=== PATIENT | male | born 1965 | race Caucasian/White ===

== ENCOUNTER → 2021-02-04 12:56 | Outpatient (BNVA) | payer OTHER, SELFPAY | PROVIDERS: Family Provider Family Medicine; PCP Family Medicine; Referring Provider Nurse Practitioner; Visit Provider Podiatrist Foot & Ankle Surgery | DX: M77.31 Calcaneal spur, right foot (principal); M21.41 Flat foot [pes planus] (acquired), right foot; M19.071 Primary osteoarthritis, right ankle and foot | CPT/HCPCS: 73630 ==

== ENCOUNTER 2021-02-04 13:59 | Outpatient (CLI) | payer OTHER, SELFPAY | END 2021-02-04 14:00 | disposition home or self-care (01) | LOC: SPT 13:59 | PROVIDERS: Family Provider Family Medicine; PCP Family Medicine; Visit Provider Podiatrist Foot & Ankle Surgery | DX: Z46.89 Encounter for fitting and adjustment of other specified devices (principal); M76.61 Achilles tendinitis, right leg | CPT/HCPCS: 97760; L3332; L4397 ==

== ENCOUNTER 2023-06-20 09:51 | Emergency (ER) | payer OTHER, SELFPAY ==
[2023-06-20 10:39] VITALS: BP 163/87; PULSE 68; RESP 18; TEMP 36.8; O2SAT 97; BMI 38.5
[2023-06-20 10:55] LABS: Basophils # 0.1 10^3/uL (0.0-0.1); Basophils % 0.7 %; Eosinophils # 0.1 10^3/uL (0.0-0.8); Eosinophils % 0.7 %; Hematocrit 44.2 % (37-53); Lymphocytes # 1.2 10^3/uL (0.8-4.8); Mean Corpuscular HGB Conc 33.5 g/dL (30-55); Mean Corpuscular Hemoglobin 31.5 pg (27-33); Monocytes # 0.4 10^3/uL (0.2-0.9); Monocytes % 4.7 %; Neutrophils # 6.84 10^3/uL (1.8-7.7); Neutrophils % 79.4 %; Nucleated Red Blood Cells % 0 %; Platelet Count 240 10^3/cmm (157-399); Red Cell Distribution Width 13.7 % (12.1-15.1)
[2023-06-20 11:12] LABS: Alanine Aminotransferase 42 U/L (0-41); Albumin Level 4.4 g/dL (3.5-5.2); Alkaline Phosphatase 86 U/L (40-130); Anion Gap 14.8 (5-19); Aspartate Amino Transferase 23 U/L (0-40); Blood Urea Nitrogen 22 mg/dL (6-20); Calcium 9.1 mg/dL (8.5-10.5); Carbon Dioxide 26 mmol/L (22-29); Chloride 104 mmol/L (98-107); Creatinine Clr Calc Pharmacy 145.9001; Globulin 2.5 g/dL (1.3-4.6); Glomerular Filtration Rate 98.9 mL/min (90-130); Glucose 109 mg/dL (65-115); Lipase 29 U/L (13-60); Osmolality Calculated 296 mOsm/kg (285-295); Potassium 3.8 mmol/L (3.5-5.1); Sodium 141 mmol/L (136-145); Total Bilirubin 0.4 mg/dL (0.15-1.2); Total Protein 6.9 g/dL (6.6-8.7)
--- NOTE | 2023-06-20 11:25 | ED_ITS ---
HPI - Abdominal Pain 2 General: Chief Complaint: Abdominal Pain Stated Complaint: abd pain Time Seen by Provider: 06/20/23 09:54 Source: patient Mode of arrival: ambulatory Limitations: no limitations History of Present Illness: 57-year-old male states he been having a bdominal pain since last night he had had a ruptured appendectomy back in the he has a large abdominal incision from that states that he feels a lump on the right part of that incision that is painful to touch she has noticed that since yesterday. Denies any vomiting denies any fever denies any diarrhea. Associated Symptoms: Denies chills, diarrhea, dysuria, fever(s), nausea and vomiting Review of Systems 2 Const: Denies: fever(s), chills, body aches or change in appetite ENMT: Denies: throat pain or dental pain Card: Denies: chest pain Resp: Denies: dyspnea GI: Reports: abdominal pain; Denies: nausea, vomiting or diarrhea : Denies: dysuria Musc: Denies: neck pain or back pain Skin/Breast: Denies: rash Neuro: Denies: headache(s) PFSH ED 2 PFSH: Social History Alcohol intake: current Physical Exam 2 Const: COMMON NORMALS: no acute distress, patient oriented x3 and healthy appearing HENMT: COMMON NORMALS: normocephalic and atraumatic HEAD & SCALP: n ormocephalic and atraumatic Neck/C-Spine: COMMON NORMALS: full ROM and supple Chest: COMMONS NORMALS: normal inspection of the chest Resp: COMMON NORMALS: normal respiratory effort Cardio: COMMON NORMALS: regular rate, regular rhythm and No murmurs present (Cardio) RATE: regular rate RHYTHM: regular rhythm GI: COMMON NORMALS: Soft to palpation, non-tender and no masses PALPATION: Yes Soft to palpation OTHER: Large incision to mid abdomen he does have a ventral hernia with incarcerated bowel that was reduced here by me Extremity: COMMON NORMALS: normal to inspection and full ROM Neuro: COMMON NORMALS: patient oriented x3, moves all extremities and no focal motor deficits Psych: COMMON NORMALS: mental status grossly normal, Normal thought process present and cooperative THOUGHT PROCESS: Normal thought process present Skin: COMMON NORMALS: no rashes or lesions noted and no wounds GENERAL SKIN EXAM: no rashes or lesions noted Course 2 Vital Signs: Vital signs: Vital Signs Temperature 98.3 F 06/20/23 10:39 Pulse Rate 68 06/20/23 10:39 Respiratory Rate 18 06/20/23 10:39 Blood Pressure 163/87 06/20/23 10:39 Pulse Oximetry 97 06/20/23 10:39 Oxygen Delivery Me thod Room Air 06/20/23 10:39 MDM - Abdominal Pain Medical Decision Making Patient presents here with abdominal pain from a ventral hernia was able to reduce the hernia and his pain is much improved currently blood works normal does not require any imaging he stable for discharge follow-up with surgeon return if worsening. Medical Records I reviewed the patient's medical records. Lab Data I reviewed the patient's lab results. 06/20/23 10:33 06/20/23 10:33 Labs/Radiology: Laboratory Results WBC 8.60 10^3/uL (3.29-11.43) 06/20/23 10:33 RBC 4.70 10^6/uL (3.85-5.65) 06/20/23 10:33 Hgb 14.80 g/dL (11.27-16.99) 06/20/23 10:33 Hct 44.2 % (37-53) 06/20/23 10:33 MCV 94.0 fl (82-101) 06/20/23 10:33 MCH 31.5 pg (27-33) 06/20/23 10:33 MCHC 33.5 g/dL (30-55) 06/20/23 10:33 RDW 13.7 % (12.1-15.1) 06/20/23 10:33 Plt Count 240 10^3/cmm (157-399) 06/20/23 10:33 MPV 10.0 fL (7.4-10.4) 06/20/23 10:33 Neut % (Auto) 79.4 % 06/20/23 10:33 Lymph % (Auto) 14.0 % 06/20/23 10:33 [place] % (Auto) 4.7 % 06/20/23 10:33 Eos % (Auto) 0.7 % 06/20/23 10:33 Baso % (Auto) 0.7 % 06/20/23 10:33 Neut # (Auto) 6.84 10^3/uL (1.8-7.7) 06/20/23 10:33 Lymph # (Auto) 1.2 10^3/uL (0.8-4.8) 06/20/23 10:33 [place] # (Auto) 0.4 10^3/uL (0.2-0.9) 06/20/23 10:33 Eos # (Auto) 0.1 10^3/uL (0.0-0.8) 06/20/23 10:33 Baso # (Auto) 0.1 10^3/uL (0.0-0.1) 06/20/23 10:33 Nucleated RBC % (auto) 0 % 06/20/23 10:33 Nucleated RBCs # 0.0 /100WBC 06/20/23 10:33 Sodium 141 mmol/L (136-145) 06/20/23 10:33 Potassium 3.8 mmol/L (3.5-5.1) 06/20/23 10:33 Chloride 104 mmol/L (98-107) 06/20/23 10:33 Carbon Dioxide 26 mmol/L (22-29) 06/20/23 10:33 Anion Gap 14.8 (5-19) 06/20/23 10:33 BUN 22 mg/dL (6-20) H 06/20/23 10:33 Creatinine 0.8 mg/dL (0.7-1.2) 06/20/23 10:33 GFR Calculation 98.9 mL/min (90-130) 06/20/23 10:33 Glucose 109 mg/dL (65-115) 06/20/23 10:33 Calculated Osmolality 296 mOsm/kg (285-295) H 06/20/23 10:33 Calcium 9.1 mg/dL (8.5-10.5) 06/20/23 10:33 Total Bilirubin 0.4 mg/dL (0.15-1.2) 06/20/23 10:33 AST 23 U/L (0-40) 06/20/23 10:33 ALT 42 U/L (0-41) H 06/20/23 10:33 Alkaline Phosphatase 86 U/L (40-130) 06/20/23 10:33 Total Protein 6.9 g/dL (6.6-8.7) 06/20/23 10:33 Albumin 4.4 g/dL (3.5-5.2) 06/20/23 10:33 Globulin 2.5 g/dL (1.3-4.6) 06/20/23 10:33 Lipase 29 U/L (13-60) 06/20/23 10:33 No radiology studies performed this visit Discharge Plan Discharge Patient Disposition: Home Clinical Impression: Abdominal pain, Ventral hernia Condition: Stable Prescriptions: No Action lisinopril 10 mg tablet 10 mg PO DAILY atorvastatin 20 mg tablet 20 mg PO DAILY potassium chloride 20 mEq tablet extended release 20 meq PO DAILY (DME) Night Splint See Rx Instructions .Route .MEDSUPPLY Qty: 1 0RF Rx Instructions: As directed prednisone 10 mg tablet 10 mg PO DAILY 12 Days Qty: 42 0RF Rx Instructions: 12 day taper (DME) Heel Lift See Rx Instructions .Route .MEDSUPPLY Qty: 1 0RF Rx Instructions: As directed Discharge Orders: Discharge ED (Routine); Ordered 06/20/23 Ordered By: Michael Rodas Referrals: Hollis Menon DO [Physician] - 4-7 days Katherin Bernard FNP [Primary Care Provider] - Discharge Diet: Advance as tolerated Discharge Activity: Resume usual activity Patient Instructions: Abdominal Pain (ED), Ventral Hernia (ED) Coding Level of Care Code ED Classification Officer for Octavio Yanes
--- NOTE | 2023-06-20 11:49 | PC.PHAR ---
pt states he takes care of his own medications-pt states he takes the medications entered -pt states he finished his medrol dose jimbo rx filled 06/12/23 6d/s-[place]ed [place] medications entered from what the pt states he takes-
[2023-06-20 11:56] VITALS: BP 160/95; PULSE 69; O2SAT 90
--- NOTE | 2023-06-23 05:32 | DCPLANNER ---
Message sent to general surgery for a follow up - hernia
== END 2023-06-20 11:58 | disposition home or self-care (01) ==
PROVIDERS: Physician Assistant; Emergency Provider Emergency Medicine; PCP Nurse Practitioner
DX: K43.6 Other and unspecified ventral hernia with obstruction, without gangrene (principal)
CPT/HCPCS: 36415; 80053; 83690; 85025; 99283

== ENCOUNTER → 2023-07-04 08:22 | Outpatient (BNVA) | payer OTHER, SELFPAY | PROVIDERS: PCP Nurse Practitioner; Referring Provider Emergency Medicine; Visit Provider Surgery | DX: K46.9 Unspecified abdominal hernia without obstruction or gangrene (principal) | CPT/HCPCS: 99203 ==

== ENCOUNTER 2023-07-25 12:37 | Outpatient (CLI) | payer OTHER, SELFPAY ==
[2023-07-25] MEDS: iohexol 350 mg/mL 500 mL Btl (per mL) PO (13:50)
[2023-07-25] MEDS: iohexol 350 mg/mL 500 mL Btl (per mL) IV (13:50)
--- NOTE | 2023-07-25 14:00 | CT_ITS ---
WS: [id number] CT ABDOMEN PELVIS TECHNIQUE: Contrast-enhanced CT of the abdomen and pelvis with coronal and sagittal reformatted image s. CLINICAL INFORMATION: ventral incisional hernia COMPARISON: None. DLP: 1164.[address] scans at [facility] use at least one of these dose optimization techniques: automated e xposure control; mA and/or kV adjustment per patient size (includes targeted exams where dose is matc hed to clinical indication); or iterative reconstruction. FINDINGS: Lung bases are well aerated. Small esophageal hiatal hernia. Diffuse fatty infiltration of the liver. Normal portal vein and splenic vein. Small esophageal hiatal hernia. Normal spleen. Gallbladder is decompressed. Normal caliber abdominal aorta. Mild aortic calc ification. Celiac and SMA are patent. Adrenal glands are normal. Normal renal parenchymal enhancement . No hydronephrosis. Pelvic phleboliths. Mild prostate enlargement measuring 5.3 cm. Recommend correl ation PSA. Mild bladder wall thickening can be seen with bladder outlet obstruction. Bladder is decom pressed. Sigmoid diverticulosis. No evidence of small or large bowel obstruction. Numerous periumbili jduah fat-containing abdominal wall hernias. No herniated bowel. Tiny fat-containing RIGHT supraumbilical hernia. Bilateral fat-containing supraumbilical hernias. Sma ll fat-containing RIGHT periumbilical hernia. Bilateral LEFT greater than RIGHT fat-containing inguinal hernias. IMPRESSION: 1. Several supraumbilical and periumbilical fat-containing hernias described above. No herniated bow el. 2. Small esophageal hiatal hernia. 3. Diffuse fatty filtration of the liver. 4. A few sigmoid diverticuli. 5. Enlarged prostate. Recommend correlation PSA.
== END 2023-07-25 12:38 | disposition home or self-care (01) ==
LOC: RAD 12:37
PROVIDERS: PCP Nurse Practitioner; Visit Provider Surgery
DX: K43.9 Ventral hernia without obstruction or gangrene (principal); K42.9 Umbilical hernia without obstruction or gangrene; K44.9 Diaphragmatic hernia without obstruction or gangrene; K57.30 Diverticulosis of large intestine without perforation or abscess without bleeding
CPT/HCPCS: 74177; Q9967

== ENCOUNTER → 2023-08-01 10:32 | Outpatient (BNVA) | payer OTHER, SELFPAY | PROVIDERS: PCP Nurse Practitioner; Visit Provider Surgery | DX: Z09 Encounter for follow-up examination after completed treatment for conditions other than malignant neoplasm (principal) | CPT/HCPCS: 99213 ==

== ENCOUNTER 2023-08-09 11:54 | Emergency (ER) | payer OTHER, SELFPAY ==
[2023-08-09 12:07] VITALS: BP 167/87; PULSE 70; RESP 18; TEMP 36.4; O2SAT 98; BMI 38.5
[2023-08-09 13:20] LABS: Basophils % 0.7 %; Eosinophils # 0.1 10^3/uL (0.0-0.8); Eosinophils % 1.7 %; Hematocrit 41.3 % (37-53); Lymphocytes # 1.6 10^3/uL (0.8-4.8); Lymphocytes % 26.5 %; Mean Corpuscular HGB Conc 33.9 g/dL (30-55); Mean Corpuscular Hemoglobin 31.7 pg (27-33); Mean Corpuscular Volume 93.7 fl (82-101); Mean Platelet Volume 9.9 fL (7.4-10.4); Monocytes # 0.4 10^3/uL (0.2-0.9); Monocytes % 7.2 %; Neutrophils # 3.82 10^3/uL (1.8-7.7); Neutrophils % 63.7 %; Nucleated Red Blood Cells % 0 %; Platelet Count 210 10^3/cmm (157-399); Red Blood Count 4.41 10^6/uL (3.85-5.65); White Blood Count 5.99 10^3/uL (3.29-11.43)
--- NOTE | 2023-08-09 13:39 | PC.PHAR ---
faxed [place] for med list
[2023-08-09 13:44] LABS: Alanine Aminotransferase 30 U/L (0-41); Albumin Level 4.2 g/dL (3.5-5.2); Alkaline Phosphatase 87 U/L (40-130); Aspartate Amino Transferase 22 U/L (0-40); Blood Urea Nitrogen 16 mg/dL (6-20); Calcium 9.5 mg/dL (8.5-10.5); Carbon Dioxide 28 mmol/L (22-29); Chloride 105 mmol/L (98-107); Creatinine Clr Calc Pharmacy 145.9001; Globulin 2.3 g/dL (1.3-4.6); Glomerular Filtration Rate 98.9 mL/min (90-130); Glucose 104 mg/dL (65-115); Lipase 30 U/L (13-60); Osmolality Calculated 295 mOsm/kg (285-295); Sodium 142 mmol/L (136-145); Total Bilirubin 0.2 mg/dL (0.15-1.2); Total Protein 6.5 g/dL (6.6-8.7)
--- NOTE | 2023-08-09 14:06 | W.ED.ABDPA2 ---
HPI - Abdominal Pain General: Chief Complaint: Abdominal Pain Stated Complaint: abd pain Time Seen by Provider: 08/09/23 13:45 Source: patient Mode of arrival: ambulatory History of Present Illness: 57-year-old male presents emergency room complaining of abdominal pain. Patient has had previous evaluations for the same issue he is several abdominal wall hernias he was seen in the emergency room referred to Dr. Renae Macdonald and referred him to surgery [place] for definitive care. He is complaining of increasing pain today no nausea or vomiting no dysuria urgency or frequency. Has persistent bulge in the abdominal pa[place] in the areas where he previously was known to have hernias. MD elicited complaint: abdominal pain Onset (ago): month(s) Pain Consistency: intermittent Location: Diffuse Severity: moderate Quality: sharp Exacerbating factors: nothing Relieving factors: nothing Associated Symptoms: Reports GI cramping; Denies anorexia, belching, bloating, change in bowel habits, change in stool character, chills, coffee ground emesis, constipation, diarrhea, dyspepsia, dysuria, excessive flatus, fever(s), heartburn, hematochezia, hematuria, hematemesis, fecal incontinence, loose stools, melena, nausea, poor appetite, syncope and vomiting Review of Systems Const: Denies: fever(s) or chills Card: Denies: chest pain or syncope Resp: Denies: dyspnea GI: Reports: GI cramping; Denies: abdominal pain, nausea, vomiting, hematemesis, coffee ground emesis, heartburn, diarrhea, constipation, bloating, belching, excessive flatus, fecal incontinence, change in bowel habits, change in stool character, hematochezia or melena : Denies: dysuria, urinary frequency, urinary urgency or hematuria Musc: Denies: neck pain or back pain Skin/Breast: Denies: rash PFSH ED PFSH: Family History Father Hypertension Social History Smoking and tobacco/nicotine status: never used tobacco/nicotine Alcohol intake: current Alcohol intake frequency: holidays/special occasions only Physical Exam Const: GENERAL APPEARANCE: cooperative and comfortable ORIENTATION/CONSCIOUSNESS: Yes awake, Yes oriented to person, Yes oriented to place and Yes oriented to time HENMT: COMMON NORMALS: normocephalic, atraumatic and hearing grossly normal bilaterally HEAD & SCALP: normocephalic and atraumatic Resp: COMMON NORMALS: normal respiratory effort, No retractions, No use of accessory muscles and clear to auscultation bilaterally AUSCULTATION: clear to auscultation bilaterally Cardio: COMMON NORMALS: regular rate, regular rhythm and No murmurs present (Cardio) RATE: regular rate RHYTHM: regular rhythm GI: COMMON NORMALS: Soft to palpation and No hepatosplenomegaly present AUSCULTATION: Yes normoactive bowel sounds PALPATION: Yes Soft to palpation, No Tenderness to palpation present (GI), No Guarding due to palpation present (GI) and Yes No hepatosplenomegaly present Extremity: COMMON NORMALS: normal to inspection, capillary refill normal, no clubbing, cyanosis or edema, no calf tenderness and no pedal edema Neuro: SENSORIUM/ORIENTATION: Yes oriented to person, Yes oriented to place and Yes oriented to time Skin: COMMON NORMALS: no rashes or lesions noted GENERAL SKIN EXAM: no rashes or lesions noted Course Vital Signs: Vital signs: Vital Signs Temperature 97.5 F L 08/09/23 12:07 Pulse Rate 70 08/09/23 12:07 Respiratory Rate 18 08/09/23 12:07 Blood Pressure 167/87 08/09/23 12:07 Pulse Oximetry 98 08/09/23 12:07 Oxygen Delivery Me thod Room Air 08/09/23 12:07 MDM - Abdominal Pain Medical Decision Making CT shows abdominal wall hernia without signs of obstruction. There is a reducible at the bedside with improvement of symptoms. Reviewed findings with the patient. At this point emergent treatment of the hernia is not indicated. Recommend follow-up with Dr. Macdonald for referral for definitive care. Medical Records I reviewed the patient's medical records. Lab Data I reviewed the patient's lab results. 08/09/23 13:10 08/09/23 13:10 Labs/Radiology: Laboratory Results WBC 5.99 10^3/uL (3.29-11.43) 08/09/23 13:10 RBC 4.41 10^6/uL (3.85-5.65) 08/09/23 13:10 Hgb 14.00 g/dL (11.27-16.99) 08/09/23 13:10 Hct 41.3 % (37-53) 08/09/23 13:10 MCV 93.7 fl (82-101) 08/09/23 13:10 MCH 31.7 pg (27-33) 08/09/23 13:10 MCHC 33.9 g/dL (30-55) 08/09/23 13:10 RDW 13.0 % (12.1-15.1) 08/09/23 13:10 Plt Count 210 10^3/cmm (157-399) 08/09/23 13:10 MPV 9.9 fL (7.4-10.4) 08/09/23 13:10 Neut % (Auto) 63.7 % 08/09/23 13:10 Lymph % (Auto) 26.5 % 08/09/23 13:10 [place] % (Auto) 7.2 % 08/09/23 13:10 Eos % (Auto) 1.7 % 08/09/23 13:10 Baso % (Auto) 0.7 % 08/09/23 13:10 Neut # (Auto) 3.82 10^3/uL (1.8-7.7) 08/09/23 13:10 Lymph # (Auto) 1.6 10^3/uL (0.8-4.8) 08/09/23 13:10 [place] # (Auto) 0.4 10^3/uL (0.2-0.9) 08/09/23 13:10 Eos # (Auto) 0.1 10^3/uL (0.0-0.8) 08/09/23 13:10 Baso # (Auto) 0.0 10^3/uL (0.0-0.1) 08/09/23 13:10 Nucleated RBC % (auto) 0 % 08/09/23 13:10 Nucleated RBCs # 0.0 /100WBC 08/09/23 13:10 Sodium 142 mmol/L (136-145) 08/09/23 13:10 Potassium 4.0 mmol/L (3.5-5.1) 08/09/23 13:10 Chloride 105 mmol/L (98-107) 08/09/23 13:10 Carbon Dioxide 28 mmol/L (22-29) 08/09/23 13:10 Anion Gap 13.0 (5-19) 08/09/23 13:10 BUN 16 mg/dL (6-20) 08/09/23 13:10 Creatinine 0.8 mg/dL (0.7-1.2) 08/09/23 13:10 GFR Calculation 98.9 mL/min (90-130) 08/09/23 13:10 Glucose 104 mg/dL (65-115) 08/09/23 13:10 Calculated Osmolality 295 mOsm/kg (285-295) 08/09/23 13:10 Calcium 9.5 mg/dL (8.5-10.5) 08/09/23 13:10 Total Bilirubin 0.2 mg/dL (0.15-1.2) 08/09/23 13:10 AST 22 U/L (0-40) 08/09/23 13:10 ALT 30 U/L (0-41) 08/09/23 13:10 Alkaline Phosphatase 87 U/L (40-130) 08/09/23 13:10 Total Protein 6.5 g/dL (6.6-8.7) L 08/09/23 13:10 Albumin 4.2 g/dL (3.5-5.2) 08/09/23 13:10 Globulin 2.3 g/dL (1.3-4.6) 08/09/23 13:10 Lipase 30 U/L (13-60) 08/09/23 13:10 All radiology interpretation(s) finalized by discharge Discharge Plan Discharge Patient Disposition: Home Clinical Impression: Abdominal wall hernia Condition: Stable Prescriptions: No Action (DME) Night Splint See Rx Instructions .Route .MEDSUPPLY Qty: 1 0RF Rx Instructions: As directed (DME) Heel Lift See Rx Instructions .Route .MEDSUPPLY Qty: 1 0RF Rx Instructions: As directed lisinopril-hydrochlorothiazide 10-12.5 mg tablet 2 tab PO QAM fluticasone propionate 50 mcg/actuation spray,suspension 2 spray intranasal DAILY PRN (Reason: Allergy Symptoms) Rx Instructions: administer into each nostril omega-3 fatty acids [Fish Oil Concentrate] 1,000 mg Capsule 2,000 mg PO QAM sertraline [Zoloft] 100 mg Tablet 100 mg PO QAM cholecalciferol (vitamin D3) [Vitamin D3] 25 mcg (1,000 unit) Capsule 25 mcg PO QAM Men's Multivitamin 400-20-300 mcg Tablet 1 tab PO QAM guaifenesin [Mucinex] 600 mg Tablet Extended Release 12hr 600 mg PO DAILY PRN (Reason: Congestion) Lipitor 40 mg Tablet 20 mg PO QAM amlodipine 2.5 mg Tablet 2.5 mg PO QAM Discharge Orders: Discharge ED (Routine); Ordered 08/09/23 Ordered By: Dong Moss Referrals: Katherin Bernrad, COMMANDING [employer]ICER [employer] [Primary Care Provider] - Patient Instructions: Opioid Safety, Pain Management Activity Restrictions/Additional Instructions: Thank you for choosing [facility] for your healthcare needs today. Please realize this is an emergency room and that we are providing you with a medical screening exam and this may not be complete and all inclusive of all the testing and or work up that you may need to determine your ailment or severity of your illness. It is very important that you follow up as instructed or that you return to the Emergency Department should you have concerns or if your condition changes or worsens in any way. You were seen today for abdominal pain. CT shows persistent recurrent abdominal wall hernias without any signs of obstruction. Portions of omentum are making their way into the hernia which causes the discomfort but does not cause a bowel obstruction. These were easily reduced in the emergency room. Recommend you follow-up with Dr. Macdonald for referral as he discussed at your previous visit for definitive care. Coding Level of Care Code ED Card Assembler for Octavio Yanes
--- NOTE | 2023-08-09 14:12 | CT_ITS ---
WS: [id number] CT ABDOMEN PELVIS TECHNIQUE: Noncontrast CT of the abdomen and pelvis with coronal and sagittal reformatted images. CLINICAL INFORMATION: Abdominal pain COMPARISON: CT 07/25/2023 DLP: 1307.[address] scans at [facility] use at least one of these dose optimization techniques: automated e xposure control; mA and/or kV adjustment per patient size (includes targeted exams where dose is matc hed to clinical indication); or iterative reconstruction. FINDINGS: Multiple umbilical, periumbilical, and supraumbilical fat-containing hernias some with slight indurat ion. No herniated bowel. No bowel obstruction. Lung bases are well aerated. Small esophageal hernia. Noncontrast pancreas is normal. Normal noncontr ast spleen. Tiny splenule. Noncontrast liver is normal. Adrenal glands are normal. No obstructing mati al or ureteral calculi. A few pelvic phleboliths. A few tiny renal cystic lesions some too small to c haracterize. No abdominal or periaortic lymphadenopathy. Sigmoid diverticulosis. Fat-containing ingui nal hernias. Stable prostate enlargement. IMPRESSION: Multiple umbilical, periumbilical, and supraumbilical fat-containing hernias some with slight indur ation. No herniated bowel. No bowel obstruction.
== END 2023-08-09 16:12 | disposition home or self-care (01) ==
PROVIDERS: Emergency Medicine; Emergency Provider Family Medicine; PCP Nurse Practitioner
DX: K43.9 Ventral hernia without obstruction or gangrene (principal)
CPT/HCPCS: 36415; 74176; 80053; 83690; 85025; 99284

== ENCOUNTER → 2024-01-31 13:12 | Outpatient (BNVA) | payer OTHER, SELFPAY | PROVIDERS: PCP Nurse Practitioner; Visit Provider Nurse Practitioner | DX: M65.341 Trigger finger, right ring finger (principal) | CPT/HCPCS: 36415; 73130; 81001; 85025; 99204 ==

== ENCOUNTER 2024-07-03 18:36 | Emergency (ER) | payer OTHER, SELFPAY ==
[2024-07-03 18:56] VITALS: BP 146/87; PULSE 81; RESP 18; TEMP 36.6; O2SAT 95; BMI 36.4
--- NOTE | 2024-07-03 19:08 | W.ED.WOUNDLC ---
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 Associated symptoms: Denies chills, fever(s), nausea or vomiting Related Data Home Medications ?Medication ?Instructions ?Recorded ?Confirmed cholecalciferol (vitamin D3) 25 25 mcg PO QAM 06/20/23 01/31/24 mcg (1,000 unit) capsule (Vitamin D3) guaifenesin 600 mg tablet, 600 mg PO DAILY PRN Congestion 06/20/23 01/31/24 extended release 12 hr (Mucinex) wqfjdalk-umdehtfq-ukzrt acid 400 1 tab PO QAM 06/20/23 01/31/24 mcg-vit K 20 mcg-lycop 300 mcg tablet omega-3 fatty acids 1,000 mg 2,000 mg PO QAM 06/20/23 01/31/24 capsule sertraline 100 mg tablet (Zoloft) 100 mg PO QAM 06/20/23 01/31/24 fluticasone propionate 50 2 spray intranasal DAILY PRN 07/04/23 01/31/24 mcg/actuation nasal Allergy Symptoms spray,suspension lisinopril 10 2 tab PO QAM 07/04/23 01/31/24 mg-hydrochlorothiazide 12.5 mg tablet amlodipine 2.5 mg tablet 2.5 mg PO QAM 08/09/23 01/31/24 atorvastatin 40 mg tablet (Lipitor) 20 mg PO QAM 08/09/23 01/31/24 Previous Rx's ?Medication ?Instructions ?Recorded Heel Lift #1 ea 02/04/21 Night Splint #1 ea 02/04/21 Allergies Allergy/AdvReac Type Severity Reaction Status Date / Time No Known Allergies Allergy Verified 07/03/24 18:59 Review of Systems Const: Denies: fever(s) or chills ENMT: Denies: throat pain or dental pain Card: Denies: chest pain Resp: Denies: dyspnea GI: Denies: abdominal pain, nausea, vomiting or diarrhea Musc: Denies: neck pain or back pain Neuro: Denies: headache(s) PFSH ED PFSH: Medical History Trigger finger of right hand Family History Father Hypertension Social History Smoking and tobacco/nicotine status: former use of tobacco/nicotine Alcohol intake: current Alcohol intake frequency: holidays/special occasions only Physical Exam Const: COMMON NORMALS: no acute distress, patient oriented x3 and healthy appearing HENMT: COMMON NORMALS: normocephalic and atraumatic HEAD & SCALP: normocephalic and atraumatic Neck/C-Spine: COMMON NORMALS: full ROM and supple Chest: COMMONS NORMALS: normal inspection of the chest Resp: COMMON NORMALS: normal respiratory effort Cardio: COMMON NORMALS: regular rate RATE: regular rate Extremity: COMMON NORMALS: full ROM Neuro: COMMON NORMALS: patient oriented x3, moves all extremities and no focal motor deficits Psych: COMMON NORMALS: mental status grossly normal, Normal thought process present and cooperative THOUGHT PROCESS: Normal thought process present Skin: NARRATIVE SKIN EXAM: 1 cm laceration superficial to the distal tip of his right finger bleeding is controlled at this time Procedures Laceration Laceration 1: Site: upper extremity Side (If applicable): right Size (cm): 1 Description: linear Depth: simple, single layer Pre-repair: wound explored, irrigated extensively and deep structures intact Skin layer closed with: other (dermabond) Course Vital Signs: Vital signs: Vital Signs Temperature 98 F 07/03/24 18:56 Pulse Rate 81 07/03/24 18:56 Respiratory Rate 18 07/03/24 18:56 Blood Pressure 146/87 07/03/24 18:56 Pulse Oximetry 95 07/03/24 18:56 Oxygen Delivery Me thod Room Air 07/03/24 18:56 MDM - Wound/Laceration Medical Decision Making Patient presents here superficial laceration finger was repaired with Dermabond he is well-appearing here stable for discharge. No radiology studies performed this visit Discharge Plan Discharge Patient Disposition: Home Clinical Impression: Laceration Condition: Stable Prescriptions: No Action (DME) Night Splint See Rx Instructions .Route .MEDSUPPLY Qty: 1 0RF Rx Instructions: As directed (DME) Heel Lift See Rx Instructions .Route .MEDSUPPLY Qty: 1 0RF Rx Instructions: As directed lisinopril-hydrochlorothiazide 10-12.5 mg tablet 2 tab PO QAM fluticasone propionate 50 mcg/actuation spray,suspension 2 spray intranasal DAILY PRN (Reason: Allergy Symptoms) Rx Instructions: administer into each nostril omega-3 fatty acids [Fish Oil Concentrate] 1,000 mg Capsule 2,000 mg PO QAM sertraline [Zoloft] 100 mg Tablet 100 mg PO QAM cholecalciferol (vitamin D3) [Vitamin D3] 25 mcg (1,000 unit) Capsule 25 mcg PO QAM Men's Multivitamin 400-20-300 mcg Tablet 1 tab PO QAM guaifenesin [Mucinex] 600 mg Tablet Extended Release 12hr 600 mg PO DAILY PRN (Reason: Congestion) Lipitor 40 mg Tablet 20 mg PO QAM amlodipine 2.5 mg Tablet 2.5 mg PO QAM Discharge Orders: Discharge ED (Routine); Ordered 07/03/24 Ordered By: Michael Rodas Referrals: Katherin Bernard FNP [Primary Care Provider] - Discharge Diet: Advance as tolerated Discharge Activity: Resume usual activity Patient Instructions: Laceration (ED), Skin Adhesive Care (ED) Print Language: Citizen Of [place] Coding Level of Care Code ED Nozzleman for Octavio Yanes
[2024-07-03 19:22] VITALS: BP 139/85; PULSE 86; O2SAT 94
== END 2024-07-03 19:23 | disposition home or self-care (01) ==
PROVIDERS: Emergency Provider Emergency Medicine; PCP Nurse Practitioner
DX: S61.210A Laceration without foreign body of right index finger without damage to nail, initial encounter (principal); W26.8XXA Contact with other sharp object(s), not elsewhere classified, initial encounter; Z87.891 Personal history of nicotine dependence
CPT/HCPCS: 12001; 99282

== ENCOUNTER → 2024-09-03 08:33 | Outpatient (BNVA) | payer OTHER, SELFPAY | PROVIDERS: PCP Nurse Practitioner; Visit Provider Surgery | DX: Z12.11 Encounter for screening for malignant neoplasm of colon (principal) | CPT/HCPCS: 99204 ==

== ENCOUNTER 2024-09-18 07:15 | Day surgery (SDC) | payer OTHER, SELFPAY ==
[2024-09-18 07:24] VITALS: BMI 35.3
[2024-09-18 07:28] VITALS: BP 155/92; PULSE 66; RESP 18; TEMP 36.4; O2SAT 97
[2024-09-18] MEDS: sodium chloride 0.9% 1,000 ML 15 ML IV (07:31)
--- NOTE | 2024-09-18 07:44 | W.PM.OPSUD ---
Surgery/Procedure H&P Update DATE OF PROCEDURE: September 18, 2024 DATE H&P PERFORMED: 09/03/24 H&P UPDATE INFORMATION: I have reviewed H&P completed within last 30 days, I have examined patient prior to procedure, No changes to prior documentation, Changes to prior documentation as noted here and Risks and benefits of the procedure reviewed PLANNED PROCEDURE: Operation Date: 09/18/24 09:15 Proposed Procedures p Colonoscopy 70671 G0121, Z12.11(Not Applicable) - Dieter Macdonald MD
--- NOTE | 2024-09-18 07:59 | ANES.PREANE2 ---
Pre-Anesthetic Assessment Height/Weight: Height 1.88 m Weight 124.738 kg Temp Pulse Resp BP Pulse Ox 97.6 F 66 18 155/92 97 09/18/24 07:28 09/18/24 07:28 09/18/24 07:28 09/18/24 07:28 09/18/24 07:28 Operation Date: 09/18/24 09:15 Proposed Procedures p Colonoscopy 07672 G0121, Z12.11(Not Applicable) - Dieter Macdonald MD Familial anesthetic complications: none Was Beta Leilani taken within 24 hours: N/A Was Clonidine taken within 24 hours: N/A Last intake: Intake Last Liquid Date 09/17/24 Last Liquid Time 20:00 Last Solid Date 09/16/24 Last Solid Time 19:30 Social No alcohol and No tobacco Exam alert and oriented x 3 Airway Submandibular: within normal limits Cervical ROM: within normal limits Mallampati: Class I Dentition: other (some missing, none loose) History/ROS No significant history except as noted Pulmonary None reported CV/HEM Hypertension None reported Hepatic None reported GI None reported Metabolic Hyperlipidemia and Morbid Obesity [facility] Osteoarthritis/DJD Neuropsych Depression Anesthetic Plan ASA status: 3 Anesthesia: Anesthesia Evaluation and MAC Medications/Allergies Home Medications ?Medication ?Instructions ?Recorded ?Confirmed ?Last Taken ?Type Heel Lift #1 ea 02/04/21 01/31/24 09/17/24 06:30 Rx Night Splint #1 ea 02/04/21 01/31/24 09/17/24 06:30 Rx cholecalciferol (vitamin D3) 25 25 mcg PO QAM 06/20/23 09/11/24 09/17/24 06:30 History mcg (1,000 unit) capsule (Vitamin D3) guaifenesin 600 mg tablet, 600 mg PO DAILY PRN Congestion 06/20/23 09/11/24 09/17/24 06:30 History extended release 12 hr (Mucinex) sertraline 100 mg tablet (Zoloft) 100 mg PO QAM 06/20/23 09/11/24 09/17/24 06:30 History fluticasone propionate 50 2 spray intranasal DAILY PRN 07/04/23 09/11/24 09/17/24 06:30 History mcg/actuation nasal Allergy Symptoms spray,suspension amlodipine 2.5 mg tablet 2.5 mg PO QAM 08/09/23 09/11/24 09/17/24 06:30 History atorvastatin 40 mg tablet (Lipitor) 20 mg PO QAM 08/09/23 09/11/24 09/17/24 06:30 History losartan 50 mg tablet 50 mg PO DAILY 09/03/24 09/11/24 09/17/24 06:30 History Allergies Allergy/AdvReac Type Severity Reaction Status Date / Time No Known Allergies Allergy Verified 09/18/24 07:31 Current Medications Generic Name Dose Route Start Last Admin Trade Name Freq PRN Reason Stop Dose Admin Sodium Chloride 1,000 mls @ 15 mls/hr 09/18/24 07:19 09/18/24 07:31 Sodium Chloride 0.9% IV 09/19/24 07:18 15 mls/hr .Q24H PRN Administration COLONOSCOPY FLUIDS PFSH Anesthesia Medical History Trigger finger of right hand Family History Father Hypertension Social History Smoking and tobacco/nicotine status: former use of tobacco/nicotine Alcohol intake: current Alcohol intake frequency: holidays/special occasions only
[2024-09-18 09:31] VITALS: BP 115/74; PULSE 65; RESP 18; TEMP 36.3; O2SAT 90
--- NOTE | 2024-09-18 09:40 | ANE.PACU2 ---
Inpatient post-anesthesia follow up: Airway intact: Yes Vital signs: Temperature 97.3 F Pulse Rate 65 Respiratory Rate 18 Blood Pressure 115/74 Pulse Oximetry 90 Oxygen Delivery Me thod Room Air Oxygen Flow Rate Fraction of Inspir ed Oxygen Hydration adequate: Yes Nausea and vomiting: No Pain level: 1 Mental status: Baseline
[2024-09-18 10:02] VITALS: BP 123/72; PULSE 58; RESP 18; O2SAT 97
== END 2024-09-18 10:03 | disposition home or self-care (01) ==
PROVIDERS: PCP Nurse Practitioner; Visit Provider Surgery
PROC: 0DJD8ZZ Inspection of Lower Intestinal Tract, Via Natural or Artificial Opening Endoscopic (ICD-10-PCS; CPT 45378; principal; 2024-09-18 09:15)
DX: Z12.11 Encounter for screening for malignant neoplasm of colon (principal); D12.8 Benign neoplasm of rectum; K57.30 Diverticulosis of large intestine without perforation or abscess without bleeding; E78.5 Hyperlipidemia, unspecified; E66.01 Morbid (severe) obesity due to excess calories; Z68.35 Body mass index [BMI] 35.0-35.9, adult; Z79.899 Other long term (current) drug therapy; Z87.891 Personal history of nicotine dependence
CPT/HCPCS: 45380; 88305; J2704; J7030

== ENCOUNTER 2024-10-23 08:58 | Outpatient (CLI) | payer OTHER, SELFPAY ==
--- NOTE | 2024-10-23 09:04 | MRR_ITS ---
PROCEDURE INFORMATION: Exam: MR Left Upper Extremity Joint Without Contrast; Wrist Exam date and time: 10/23/2024 9:44 AM Age: 59 years old Clinical indication: Injury or trauma; Fall; Swelling (edema); Left; Injury date: 08/20/2024; Injury details: PT fell wrist pain/ swelling mostly on lateral edge; Additional info: Pain x 6 weeks post fall/swelling TECHNIQUE: Imaging protocol: Magnetic resonance imaging of the left upper extremity without contrast. Exam focused on the wrist. COMPARISON: No relevant prior studies available. FINDINGS: Limitations: Motion artifact and pulsation. Bones/joints: Normal osseous alignment. No acute fracture. Small distal radioulnar joint effusion. Mild distal ulnar osteophyte formation is present. Scapholunate ligament: Unremarkable. No tear. Lunotriquetral ligament: Unremarkable. No tear. Other ligaments: Mild abnormal increased signal intensity in the dorsal and volar intercarpal ligament complexes is noted. Triangular fibrocartilage complex: A focal full-thickness tear of the mid to anterior portion of the radial attachment of the triangular fibrocartilage is suspected. Flexor compartment tendons: Unremarkable. No tear. Extensor compartment tendons: Unremarkable. No tear. Soft tissues: The soft tissues adjacent to the dorsal aspect of the trapezium, an ovoid circumscribed T1 hypointense and T2 intermediate to high signal intensity structure best demonstrated on series 1101, image 2 is identified measuring 1.3 x 0.8 x 0.6 cm. The structure demonstrates a thin peripheral rim of T1 and T2 hypointensity. MR/MR wrist LT wo con* [id number] IMPRESSION: 1. The examination is limited by artifact. 2. Mild sprain of the volar and dorsal intercarpal ligament complexes. 3. Probable full thickness tear of the triangular fibrocartilage without a definite complete tear. Consider MR arthrography for further evaluation as clinically indicated. 4. Mild distal radioulnar joint primary osteoarthritic changes. 5. A benign-appearing indeterminate circumscribed body along the posterior aspect of the trapezium is noted possibly representing an ossified body related to previous trauma containing bone marrow edema. Consider dedicated CT for confirmation of the osseous nature of this structure.
== END 2024-10-23 08:59 | disposition home or self-care (01) ==
LOC: RAD 08:59
PROVIDERS: PCP Nurse Practitioner; Visit Provider Nurse Practitioner
DX: S63.592A Other specified sprain of left wrist, initial encounter (principal); W19.XXXA Unspecified fall, initial encounter; M19.032 Primary osteoarthritis, left wrist; M25.432 Effusion, left wrist; M25.732 Osteophyte, left wrist; R93.6 Abnormal findings on diagnostic imaging of limbs
CPT/HCPCS: 73221

== ENCOUNTER 2025-04-01 16:46 | Emergency (ER) | payer OTHER, SELFPAY ==
--- OUTSIDE RECORDS SUMMARY | 2024-08-07 03:30 | XMS_ITS ---
Author Organization [facility] Address [address] [place] [address] Care Team Providers Care Newsroom Intern Name Role Phone Cristina CARDENAS, Katherin Primary Care Provid er Unavailable Chintan Penny Unavailable [phone] REASON FOR VISIT RT HAND/TRIGGER FINGER Encounters Encounter Location Date Provider Diagnosis [facility] [address] [place] [address] 08/07/2024 Chintan Penny Plan Of Treatment No Information Progress Notes * Dinh DAVIS KDOB:1965 (59 yo M)Acc No.[id number]:08/07/2024 Progress Notes Patient: Dinh Palacio Provider: Jose Penyn MD :1965 A ge:58 Y S ex:Male Date:08/07/2024 Address:[address] [place], [place] [id number] Pcp:Katherin AGUIRRE, CARLOS BC Check In:08:44 AM DELI WORKER Subjective: * Chief Complaints: * R T HAND/TRIGGER FINGER Care Plan Details* * Electronic signature of Roger Penny MD on 04/01/2025 at 04:52 PM DELI WORKER Sign off status: Pending * Provider: Jose Penny MD Date: 0 08/07/2024 Generated for Printi ng/Faxing/eTransmitting on: 1 06/01/2024 04:52 PM DELI WORKER
--- OUTSIDE RECORDS SUMMARY | 2024-09-11 04:20 | XMS_ITS ---
Author Organization [facility] Address [address] [place] [address] Care Team Providers Care Record Press Supervisor Name Role Phone [facility], Katherin Primary Care Provid er Unavailable Chintan Penny Unavailable [phone] REASON FOR VISIT RT HAND/TRIGGER FINGER Encounters Encounter Location Date Provider Diagnosis [facility] [address] [place] [address] 09/11/2024 Chintan Penny Plan Of Treatment No Information Progress Notes * Dinh DAVIS KDOB:1965 (59 yo M)Acc No.[id number]:09/11/2024 Patient: Dinh Palacio Provider: Jose Penny MD :1965 A ge:59 Y S ex:Male Date:09/11/2024 Address:[address] [place], [place] [id number] Pcp:Katherin AGUIRRE, CARLOS Subjective: * Chief Complaints: * R T HAND/TRIGGER FINGER * Electronic signature of Roger Penny MD on 04/01/2025 at 04:52 PM WIRELESS NETWORK ENGINEER Sign off status: Pending * Provider: Jose Penny MD Date: 0 09/11/2024 Generated for Printi ng/Faxing/eTransmitting on: 1 06/01/2024 04:52 PM WIRELESS NETWORK ENGINEER
--- OUTSIDE RECORDS SUMMARY | 2025-04-01 16:52 | XMS_ITS | Clinical Summary ---
Author Organization [facility] Address [address] [place] [address] Phone Care Team Providers Care Gin Clerk Name Role Phone Unavailable Primary Care Provider Unavailabl e Allergies No known active allergies Medications mucjoxej-sor-spb ic-vit K-lycop (Men's 50 Plus Multivitamin) 400-20-370 mcg Tablet Active sertraline (ZOLOFT) 100 mg tablet Active atorvastatin (LIPITOR) 20 mg tablet Take 20 mg by mouth daily. Active omega-3 fatty acids-fish oil 300-1,000 mg Capsule Take by mouth daily. Active cholecalciferol, vitamin D3, 1,000 unit Take by mouth. Acti ve amLODIPine (NORVASC) 2.5 mg tablet 2.5 mg. 4 Active lisinopril-hydro CHLOROthiazide (ZESTORETIC) 10-12.5 mg tablet TAKE 2 TABLETS BY MOUTH EVERY MORNING FOR HEART OR BLOOD PRESSURE 4 Active dextromethorphan -guaiFENesin (MUCINEX DM) 30-600 mg Tablet Sustained Release 12HR Take 1 Tablet by mouth every 12 hours. Active fluticasone propionate (FLONASE) 50 mcg/spray Mitchell, Suspension nasal inhaler Administer 2 Sprays in each nostril daily. Active acetaminophen (TYLENOL) 500 mg tablet Take 2 Tablets (1,000 mg) by mouth every 8 hours. 4 Active oxyCODONE-acetam inophen (Percocet) 5-325 mg tabletIndication s:Ventral incisional hernia without obstruction or gangrene Take 1 Tablet by mouth every 8 hours as needed for Pain. Max Daily Amount: 3 Tablets 20 Tablet Active polyethylene glycol (MIRALAX) 17 gram Powder in Packet Take 1 Packet (17 Grams) by mouth daily. Active Active Problems Problem Noted Date Diagnosed Date Ventral incisional hernia without obstruction or gangrene 08/31/2023 Hyperlipidemia 08/30/2023 Ventral hernia without obstruction or gangrene 0 08/22/2023 Hypertension 08/22/2023 Immunizations Immunization Administration Dates Next Due (ADACEL/BOOSTRIX)(10 YR UP) TDAP VACCINE, 0.5ML, IM 03/11/2020 (SPIKEVAX) (12 YRS UP PRIMAR Y SERIES) COVID-19 VACCINE - MRNA-1273(PF) 100 MCG/0.5 ML IM SUSP 02/15/2021,01/15/2021 Social History Tobacco Use Types Packs/Day Years Used Date Smoking Tobacco: Former Cigarettes Smokeless Tobacco: Never Tobacco Cessation:Counseling Given: Not Answered Alcohol Use Standard Drinks/Week Comments Yes 0 (1 standard drink = 0.6 oz pur e alcohol) Feeling Safe Answer Date Recorded Are you in a relationship wi th someone who hurts you emotionally and/or physically? No 08/29/2023 Food Insecurity Answer Date Recorded Social/Environmental Concerns No concerns Transportation Needs Answer Date Record ed Social/Environmental Concerns No concerns Housing Stability Answer Date Recorded Social/Environmental Concerns No concerns Utility Needs Answer Date Recorded Social/Environmental Concerns No concerns Sex and Gender Information Value Date Recorded Sex Assigned at Male 01/03/2023 12:23 PM CDT Legal Sex Male 10:29 AM CDT Gender Identity Male 01/03/2023 12:23 PM CDT Sexual Orientation Straight 01/03/2023 12 :23 PM CDT Last Filed Vital Signs Vital Sign Reading Time Taken Comments Blood Pressure 102/60 09/12/2023 1:51 PM CDT Pulse 80 09/12/2023 1:51 PM CDT Temperature 37.2 C (98.9 F) 08/31/2023 11:00 AM CDT Respiratory Rate 18 08/31/2023 11:00 AM CDT Oxygen Saturation 97% 09/12/2023 1:51 PM CDT Inhaled Oxygen Concentration - - Weight 122.9 kg (271 lb) 09/12/2023 1:51 PM CDT Height 188 cm (6' 2 ) 09/12/2023 1:51 PM CDT Body Mass Index 34.79 09/12/2023 1:51 PM CDT Plan of Treatment Health Maintenance Due Date Last Done Comments COLORECTAL SCREENING 08/20/2008 Colorectal Cancer Screening 08/20/2008 FIT-DNA Q 3 years 08/20/2008 FIT/FOBT Q 1 year 08/20/2008 Flex Sig/CT Colonography Q 5 years 08/20/2008 ZOSTER VACCINE (1 of 2) 08/20/2013 INFLUENZA VACCINE (#1) 2024 COVID-19 Vaccine (3 - season) 01/06/202503/2021, 01/15/2021 DTAP/TDAP/TD VACCINES (2 - Td or Tdap) 03/11/2030 RSV VACCINE (60+ or ) (1 - 1-dose 75+ series) 08/20/2038 Medical Devices Implanted Type Area Rn Endoscopy Device Identifier Shelf Expiration Date Model / Serial / Lot Tacker Optifix 30 Per Load [id number] - [id number] Implanted:Qty: 1 on 08/29/2023 by Jeremy Betancourt Jr., MD at [facility] N/A: Abdomen BARD DAVOL [id number] 04/04/2025 [id number] / / [id number] Tacker Optifix 30 Per Load [id number] - [id number] Implanted:Qty: 1 on 08/29/2023 by Jeremy Betancourt Jr., MD at [facility] N/A: Abdomen BARD DAVOL [id number] 04/04/2025 [id number] / / [id number] W/Echo Ps [id number] - [id number] Implanted:Qty: 1 on 08/29/2023 by Jeremy Betancourt Jr., MD at [facility] [place] N/A: Abdomen BARD DAVOL [id number] 07/05/2024 [id number] / / [id number] Insurance * Guarantor: [employer] Account Type Relation to Patient Date of Phone Billing Address Corporate Other DEFAULT ADDRESS [address] [employer] Advance Directives For more information, please contact: [phone] * NO CPR (In Event of Cardiopulmonary Arrest) (Latest Code Status on File) Date Activated Date Inactivated Comments 08/29/2023 12:30 PM 08/31/2023 3:12 PM Question Answer Comments Mechanical Ventilation (for respiratory distress) - Invasive (i.e. intubation): No Mechanical Ventilation (for respiratory distress) - Non-Invasive (i.e. BiPAP, CPAP): No * NO CPR (In Event of Cardiopulmonary Arrest) Date Activated Date Inactivated Comments 08/29/2023 9:53 AM 08/29/2023 12:30 PM Question Answer Comments Mechanical Ventilation (for respiratory distress) - Invasive (i.e. intubation): No Mechanical Ventilation (for respiratory distress) - Non-Invasive (i.e. BiPAP, CPAP): No * Full Code Date Activated Date Inactivated Comments 08/29/2023 6:16 AM 08/29/2023 9:53 AM
--- OUTSIDE RECORDS SUMMARY | 2025-04-01 16:53 | XMS_ITS | Patient Health Record ---
Author Organization [facility] Address [address] [place] [address] Care Team Providers Care Senior Master Scheduler Name Role Phone BernardMARCELLO MUSIC ARTISTKatherin TARANGO Primary Care Provid er Unavailable Chintan Penny Unavailable [phone] Allergies No Known Allergies Reason For Referral No Information Medications Medication SIG (Take, Route, Frequency, Duration) Notes Start Date End Date Status Sertraline HCl 100 MG Tablet 1 tablet Orally Once a day Active Mucinex Active Atorvastatin Calcium 20 MG Tablet 1 tablet Orally Once a day Active Vitamin D (Cholecalciferol) 25 MCG (1000 UT) Tablet 1 tablet Orally Once a day Active Flonase Active CeleBREX 200 MG Capsule 1 capsule as nee ded Orally Once a day Active Aleve Active Losartan Potassium 50??? A ctive amLODIPine Besylate 2.5 MG Tablet 1 tablet Orally Once a day Active Mens 50+ Multivitamin Active Social History Tobacco Use: Social History Observation Description Date Details (start date - stop date) Former Smoker NA - NA Social History Tobacco Use: Social Info Question Answer Notes Tobacco Control (Standard) Tobacco use: Former smoker Section Notes: Reported alcohol, beer, liqu or 2-3 times a week Reported alcohol, beer, liqu or 2-3 times a week Vital Signs Heart Rate 66 /min 09/13/2024 Blood pressure diastolic 72 mm Hg 09/13/2024 Oximetry 96 % 09/13/2024 Height-cm 187.96 cm 09/13/2024 Weight-kg 128.4 kg 08/07/2024 Height 74 in 09/13/2024 Blood pressure systolic 128 mm Hg 09/13/2024 Weight 283.07 lbs 08/07/2024 BMI 36.34 kg/m2 08/07/2024 Encounters Encounter Location Date Provider Diagnosis [facility], [facility] [address] [place] [address] 09/13/2024 Chintan Penny Postoperative state Z98.890 [facility]ly [facility], [facility] [address] [facility] [place] [address] 08/07/2024 Chintan Penny Trigger finger, righ t ring finger M65.341 Formerly [facility], [facility] Bone [facility] [address] [facility] [place] [address] 08/27/2024 Chintan Penny Assessments Encounter Date Diagnosis (ICD Code) Assessment Notes Treatment Notes Treatment Clinical Notes Section Notes 08/07/2024 Trigger finger, right ring finger (ICD-10 - M65.341) I discussed trig jordan digit release with the patient in detail. I told him overall this has a very high likelihood of solving there are problems. I think the risks are minimal. This will be done under loupe magnification. There is very little risk of blood vessel nerve injury. Infection would be very uncommon. Anesthetic risks will be discussed with the anesthesiologist but should be minimal with local/regional anesthesia. The patient understands and agrees to proceed. 09/13/2024 Postoperative state (ICD-10 - Z98.890) Daniel is doing ve ry well. He can resume activity as tolerated. I would keep a light Band-Aid on the incision until completely heals. I will see him back on an as-needed basis Plan Of Treatment No Information Insurance Providers Payer Name Payer Address Payer Phone Subscriber Number Group Number Insured Name Patient Relationship to Insured Coverage Start Date Coverage End Date [employer] [address] [place] [address] [id number] Dinh Richards Self - patient is the insured Medications Administered Medication Instructions Date of Administration Dosage Notes DEPO-Medrol 03/27/2024 0.5 mL Right Ring Fi nger Lidocaine 03/27/2024 0.5 mL Right finger F ac Medical (General) History Medical History History ICD Code measles mumps arthritis hernia hypertension back trouble Surgical History Surgery Date(Month/Year) Abdominal surgery for ruptured appendix 1986 Lower back surgery for 2 inflamed disks 2000 Hernias 2023 right ring trigger finger release 2024 Hospitalization History Reason Date(Month/Year) SULLY
[2025-04-01 16:54] VITALS: BP 166/100; PULSE 62; RESP 19; TEMP 36.8; O2SAT 97; BMI 35.3
--- NOTE | 2025-04-01 17:03 | XRR_ITS ---
PROCEDURE INFORMATION: Exam: XR Right Knee Exam date and time: 04/01/2025 5:10 PM Age: 59 years old Clinical indication: Pain; Knee; Right; Additional info: Injury RT knee popped TECHNIQUE: Imaging protocol: Radiologic exam of the right knee. Views: 3 views. COMPARISON: CR XR foot RT min 3V* [id number] 02/04/2021 1:04 PM FINDINGS: Bones/joints: No acute fracture or malalignment. No significant joint space narrowing. Small amount of spur or enthesophyte formation anterior superior patella. Small amount of chronic appearing calcification anteriorly about the tibia at the knee. No significant suprapatellar effusion. Soft tissues: Unremarkable. XR/XR knee RT 3V* [id number] IMPRESSION: No fracture or malalignment.
--- NOTE | 2025-04-01 17:05 | W.ED.EXTPRO ---
HPI - Extremity Problem General: Chief complaint: Extremity Injury, Lower Stated complaint: R knee pain Time Seen by Provider: 04/01/25 17:02 Source: patient Mode of arrival: ambulatory Limitations: no limitations History of Present Illness: 59-year-old male states that he was getting into his truck this morning and felt a pop in his right knee. States has been having pain in that right knee since then. Pain is sharp in nature rates at 6 out of 10 states he has not been able to really bear weight on that knee. He denies any other injuries. Denies fever. Related Data Home Medications ?Medication ?Instructions ?Recorded ?Confirmed cholecalciferol (vitamin D3) 25 25 mcg PO QAM 06/20/23 09/11/24 mcg (1,000 unit) capsule (Vitamin D3) guaifenesin 600 mg tablet, 600 mg PO DAILY PRN Congestion 06/20/23 09/11/24 extended release 12 hr (Mucinex) sertraline 100 mg tablet (Zoloft) 100 mg PO QAM 06/20/23 09/11/24 fluticasone propionate 50 2 spray intranasal DAILY PRN 07/04/23 09/11/24 mcg/actuation nasal Allergy Symptoms spray,suspension amlodipine 2.5 mg tablet 2.5 mg PO QAM 08/09/23 09/11/24 atorvastatin 40 mg tablet (Lipitor) 20 mg PO QAM 08/09/23 09/11/24 losartan 50 mg tablet 50 mg PO DAILY 09/03/24 09/11/24 Previous Rx's ?Medication ?Instructions ?Recorded Heel Lift #1 ea 02/04/21 Night Splint #1 ea 02/04/21 Allergies Allergy/AdvReac Type Severity Reaction Status Date / Time No Known Allergies Allergy Verified 04/01/25 16:59 Review of Systems Musc: Reports: extremity pain PFSH ED PFSH: Medical History Trigger finger of right hand Family History Father Hypertension Social History Smoking and tobacco/nicotine status: former use of tobacco/nicotine Alcohol intake: current Alcohol intake frequency: holidays/special occasions only Physical Exam Const: COMMON NORMALS: no acute distress, patient oriented x3 and healthy appearing HENMT: COMMON NORMALS: normocephalic and atraumatic HEAD & SCALP: normocephalic and atraumatic Eye: COMMON NORMALS: conjunctivae normal CONJUNCTIVA: Yes conjunctivae normal Neck/C-Spine: COMMON NORMALS: full ROM and supple Chest: COMMONS NORMALS: normal inspection of the chest Resp: COMMON NORMALS: normal respiratory effort Cardio: COMMON NORMALS: regular rate RATE: regular rate Extremity: COMMON NORMALS: full ROM NARRATIVE EXTREMITY EXAM: Tenderness noted over right knee no obvious deformity distal pulse sensation intact no warmth to touch Neuro: COMMON NORMALS: patient oriented x3, moves all extremities and no focal motor deficits Psych: COMMON NORMALS: mental status grossly normal, Normal thought process present and cooperative THOUGHT PROCESS: Normal thought process present Skin: COMMON NORMALS: no rashes or lesions noted and no wounds GENERAL SKIN EXAM: no rashes or lesions noted Course Vital Signs: Vital signs: Vital Signs Temperature 98.2 F 04/01/25 16:54 Pulse Rate 62 04/01/25 16:54 Respiratory Rate 19 H 04/01/25 16:54 Blood Pressure 166/100 04/01/25 16:54 Pulse Oximetry 97 04/01/25 16:54 MDM - Extremity (Nontraumatic) Medical Decision Making Patient presents here with right knee pain after trying to get into truck today differential includes knee sprain, knee dislocation, tibial plateau fracture. X-ray of the knee here was interpreted by me showed no acute abnormality. Patient's exam here is benign and has no signs of septic joint. Likely a knee sprain will place him in a immobilizer he is to weight-bear as tolerated we will get him follow-up with orthopedics he understands agrees to plan. Medical Records I reviewed the patient's medical records. XR interpretation done by ED provider, pending radiology final review ED provider radiology interpretation(s): X-ray right knee no acute abnormality Discharge Plan Discharge Patient Disposition: Home Clinical Impression: Right knee sprain Condition: Stable Prescriptions: No Action (DME) Night Splint See Rx Instructions .Route .MEDSUPPLY Qty: 1 0RF Rx Instructions: As directed (DME) Heel Lift See Rx Instructions .Route .MEDSUPPLY Qty: 1 0RF Rx Instructions: As directed losartan 50 mg tablet 50 mg PO DAILY fluticasone propionate 50 mcg/actuation spray,suspension 2 spray intranasal DAILY PRN (Reason: Allergy Symptoms) Rx Instructions: administer into each nostril sertraline [Zoloft] 100 mg Tablet 100 mg PO QAM cholecalciferol (vitamin D3) [Vitamin D3] 25 mcg (1,000 unit) Capsule 25 mcg PO QAM guaifenesin [Mucinex] 600 mg Tablet Extended Release 12hr 600 mg PO DAILY PRN (Reason: Congestion) atorvastatin [Lipitor] 40 mg Tablet 20 mg PO QAM amlodipine 2.5 mg Tablet 2.5 mg PO QAM Discharge Orders: Discharge ED (Routine); Ordered 04/01/25 Ordered By: Michael Rodas Referrals: Katherin Bernard FNP [Primary Care Provider, Nurse Practitioner] Kamaljit Zeng DO [Physician, Orthopedics] - 4-7 days Discharge Diet: Advance as tolerated Discharge Activity: Increase activity as tolerated Patient Instructions: Knee Sprain (ED), Knee Immobilizer (ED) Print Language: Georgian Coding Level of Care Code ED Brush Machine Setter for Octavio Yanes
[2025-04-01] MEDS: HYDROcodone-acetaminophen 5-325 mg Tablet 1 TAB PO (17:19)
[2025-04-01 17:45] VITALS: BP 157/98; PULSE 99; RESP 17; O2SAT 97
== END 2025-04-01 17:46 | disposition home or self-care (01) ==
PROVIDERS: Emergency Provider Emergency Medicine; PCP Nurse Practitioner
DX: S83.91XA Sprain of unspecified site of right knee, initial encounter (principal); Z87.891 Personal history of nicotine dependence; X58.XXXA Exposure to other specified factors, initial encounter
CPT/HCPCS: 73562; 99283; J9999

== ENCOUNTER → 2025-04-15 08:04 | Outpatient (BNVA) | payer OTHER, SELFPAY | PROVIDERS: PCP Nurse Practitioner; Visit Provider Physician Assistant | DX: M23.300 Other meniscus derangements, unspecified lateral meniscus, right knee (principal) | CPT/HCPCS: 73560; 73565; 99213 ==

== ENCOUNTER 2025-04-15 10:50 | Outpatient (CLI) | payer OTHER, SELFPAY | END 2025-04-15 10:51 | disposition home or self-care (01) | LOC: SPT 10:51 | PROVIDERS: PCP Nurse Practitioner; Visit Provider Student in an Organized Health Care Education/Training Program | DX: Z46.89 Encounter for fitting and adjustment of other specified devices (principal); M23.300 Other meniscus derangements, unspecified lateral meniscus, right knee | CPT/HCPCS: L1812 ==

== ENCOUNTER 2025-04-18 10:43 | Outpatient (CLI) | payer OTHER, SELFPAY ==
--- NOTE | 2025-04-18 11:00 | MR_ITS ---
WS: [id number] MRI RIGHT KNEE NONCONTRAST TECHNIQUE: Axial PD, coronal PD fat sat, coronal PD, sagittal PD, and sagittal PD fat-sat images obtained. CLINICAL INFORMATION: derangement of knee COMPARISON: None. FINDINGS: Distal quadriceps and patella tendons are intact. Hypertrophic patella. ACL and PCL appear intact. Small interstitial tear ACL distal insertion may be chronic. Moderate to advanced tricompartmental arthritis. Chronic thinning of the medial and lateral meniscus. Chronic intrasubstance signal normality with a horizontal tear involving the posterior horn lateral meniscus. Mild peripheral extrusion of the medial meniscus with chronic desiccation. Moderate to advanced chondromalacia patella. Normal lateral collateral ligament. MCL appears intact. Normal popliteal fossa. Prepatellar and infrapatellar soft tissue edema. MR/MR knee RT wo con* [id number] IMPRESSION: 1. Moderate to advanced tricompartmental arthritis with prepatellar and infrap atellar soft tissue edema. 2. ACL and PCL appear intact. Small interstitial ACL tear at the distal insert ion age-indeterminate but may be chronic 3. Complex tear involving the posterior horn lateral meniscus extending to the free edge and meniscal root. Chronic thinning and desiccation of the medial me niscus with peripheral extrusion. 4. Medial and lateral collateral ligaments appear intact. 5. Grade III chondromalacia patella. [facility]bridge grading: grade III: partial-thickness cartilage loss with focal ulcer ation
== END 2025-04-18 10:44 | disposition home or self-care (01) ==
LOC: RAD 10:44
PROVIDERS: PCP Nurse Practitioner; Visit Provider Physician Assistant
DX: M17.11 Unilateral primary osteoarthritis, right knee (principal); S83.271A Complex tear of lateral meniscus, current injury, right knee, initial encounter; X58.XXXA Exposure to other specified factors, initial encounter
CPT/HCPCS: 73721